=== PATIENT | female | born 1955 | race Caucasian/White ===

== ENCOUNTER 2016-06-28 14:44 | Emergency (ER) | payer BC | END 2016-06-28 19:13 | disposition left against medical advice (07) | LOC: BURERS 14:44 | DX: S76.312A Strain of muscle, fascia and tendon of the posterior muscle group at thigh level, left thigh, initial encounter (principal); E11.9 Type 2 diabetes mellitus without complications; K21.9 Gastro-esophageal reflux disease without esophagitis; E78.5 Hyperlipidemia, unspecified; E78.00 Pure hypercholesterolemia, unspecified; J44.9 Chronic obstructive pulmonary disease, unspecified; Z79.82 Long term (current) use of aspirin; Z79.84 Long term (current) use of oral hypoglycemic drugs; Z79.899 Other long term (current) drug therapy; X58.XXXA Exposure to other specified factors, initial encounter | CPT/HCPCS: 99283 ==

== ENCOUNTER 2018-09-06 20:44 | Emergency (ER) | payer BC, OTHER ==
--- NOTE | 2018-09-06 23:26 | RAD ---
RIGHT KNEE FOUR VIEWS: Date: 09-06-18 FINDINGS: No fracture or large joint effusion seen. There is a small amount of bone spurring and perhaps some m inimal medial joint space narrowing. Otherwise, the exam is unremarkable. IMPRESSION: Minor arthritic changes. POS: HOME
== END 2018-09-06 21:30 | disposition home or self-care (01) ==
LOC: BURERS 20:45
DX: S83.411A Sprain of medial collateral ligament of right knee, initial encounter (principal); E11.9 Type 2 diabetes mellitus without complications; E78.5 Hyperlipidemia, unspecified; M19.90 Unspecified osteoarthritis, unspecified site; J44.9 Chronic obstructive pulmonary disease, unspecified; K21.9 Gastro-esophageal reflux disease without esophagitis; Z79.82 Long term (current) use of aspirin; Z79.899 Other long term (current) drug therapy; Z79.84 Long term (current) use of oral hypoglycemic drugs; X50.1XXA Overexertion from prolonged static or awkward postures, initial encounter

== ENCOUNTER 2020-05-12 11:09 | Inpatient (IN) | payer OTHER ==
[2020-05-12 12:46] LABS: Band 4 % (5-11); Hemoglobin 15.7 g/dL (12.0-16.0); Lymphocytes 42 % (21-51); MDiff Complete? YES; Mean Corpuscular Hemoglobin 28.5 pg (27.0-31.0); Mean Corpuscular Volume 91.9 fL (78.0-98.0); Mean Platelet Volume 14.7 fL (7.4-10.4); Monocytes 3 % (0-10); Neutrophil 41 % (42-75); Platelet Count 125 thou/uL (130-400); RBC Distribution Width 13.5 % (11.5-14.5); Reactive Lymphocytes 10 % (0-10); Red Blood Cell (RBC) Count 5.49 mill/uL (4.20-5.40); White Blood Cell (WBC) Count 3.7 thou/uL (4.8-10.8)
[2020-05-12 12:47] LABS: ALT (SGPT) 43 U/L (8-55); AST (SGOT) 34 U/L (5-34); Albumin 3.7 g/dL (3.4-4.8); Alkaline Phosphatase 94 U/L (40-110); Anion Gap 15 mmol/L (10-20); BUN (Urea Nitrogen) 16 mg/dL (9.8-20.1); Bilirubin, Total 0.4 mg/dL (0.2-1.2); Calc. Creatinine Clearance 0 mL/min (70-130); Calcium 8.8 mg/dL (7.8-10.44); Carbon Dioxide 26 mmol/L (23-31); Chloride 100 mmol/L (98-107); Globulin 3.2 g/dL (2.4-3.5); Glucose 181 mg/dL (80-115); Potassium 4.2 mmol/L (3.5-5.1); Protein, Total 6.9 g/dL (6.0-8.3); Sodium 137 mmol/L (136-145)
--- NOTE | 2020-05-12 13:37 | RAD ---
PORTABLE CHEST: 05/12/20 An AP portable film at 1809 is compared with a 05/14/16 study. Scoliosis is noted as usual. The heart size is normal. There is no congestion of the vessels or pleur al effusions. There are a few linear infiltrates in the left perihilar region. There may be a small ground glass pa tch just above the right lung hilum. While these findings are not definite, the possibility of early infection, including COVID, should be considered. IMPRESSION: A few streaky findings in the lungs as noted above. See discussion. POS: HOME
[2020-05-12] MEDS ORDERED: Dexamethasone 4 mg/ml Vial ONE (15:33)
[2020-05-12] MEDS ORDERED: Azithromycin 500 MG VIAL ONE (15:34)
[2020-05-12] MEDS ORDERED: Enoxaparin Sodium 40 MG/0.4 ML SYRINGE ONE (15:34)
[2020-05-12] MEDS ORDERED: cefTRIAXone\\ROCEPHIN 1 GM VIAL ONE (15:34)
--- NOTE | 2020-05-12 16:49 | CT ---
CT OF THE CHEST WITHOUT CONTRAST: 05/12/[address] of the chest was done without contrast in this patient with a few small infiltrate suggeste d on her recent chest film and dyspnea. Today's exam shows multiple patchy confluent and ground glass infiltrates in all lobes. The upper lob es are somewhat more affected at the moment, but there are findings in the lower lobes as well, more right lower lobe than left. The patchy and ground glass nature and diffuse coverage would be more typ ical of an infection such as COVID than a conventional bacterial pneumonia. Since no IV contrast was used, I cannot comment on any potential for clots. No mediastinal mass was seen. There are no effusio ns. An incidental finding is a small nonobstructing calculus in the upper pole of the left kidney. IMPRESSION: Multiple patchy infiltrates, all lobes, as described. The findings are somewhat more typical for a CO VID-like pneumonia than a conventional bacterial pneumonia. Findings discussed with Dr. Parrish at 1510 on 05/12/20. POS: HOME
[2020-05-12 17:50] LABS: SARS-CoV-2 NAA Rapid Test DETECTED (NotDetected)
[2020-05-12] MEDS ORDERED: Albuterol 200 PUFF (6.7GM INHALER) INH PRN ×2 (17:57→18:44)
[2020-05-12] MEDS ORDERED: Morphine 4 MG/ML VIAL SLOW IVP PRN (17:57)
[2020-05-12] MEDS ORDERED: Ondansetron ODT 4 MG TAB PO PRN (17:58)
[2020-05-12] MEDS ORDERED: Ondansetron PF 4 MG/2 ML Vial IVP PRN (17:58)
[2020-05-12 18:09] VITALS: BMI 45.4
[2020-05-12] MEDS ORDERED: Non-Formulary Item 1 EACH (Budesonide-Formoterol [Symbicort 80-4.5] 80 MG/4.5 MG Aer) INH PRN (18:44)
[2020-05-12] MEDS ORDERED: Dextrose 5% in Water 1,000 ML IV PRN (18:46)
[2020-05-12] MEDS ORDERED: Dextrose 50% Abboject 50 ML SYRINGE SLOW IVP PRN (18:46)
[2020-05-12] MEDS: Simvastatin 40 MG TAB PO SCH (21:24)
[2020-05-12] MEDS: Enoxaparin Sodium 40 MG/0.4 ML SYRINGE SC SCH (21:24)
[2020-05-12] MEDS: glyBURIDE 5 MG TAB PO SCH (21:25)
[2020-05-12] MEDS: metFORMIN 500 MG TAB PO SCH (21:25)
[2020-05-12] MEDS: HumaLOG 300 UNITS/3 ML VIAL SC PRN (21:57)
[2020-05-13 05:46] LABS: ALT (SGPT) 38 U/L (8-55); AST (SGOT) 31 U/L (5-34); Albumin 3.4 g/dL (3.4-4.8); Alkaline Phosphatase 85 U/L (40-110); Anion Gap 15 mmol/L (10-20); BUN (Urea Nitrogen) 19 mg/dL (9.8-20.1); Bilirubin, Total 0.3 mg/dL (0.2-1.2); Calc. Creatinine Clearance 116 mL/min (70-130); Calcium 8.9 mg/dL (7.8-10.44); Carbon Dioxide 27 mmol/L (23-31); Chloride 100 mmol/L (98-107); Glucose 326 mg/dL (80-115); Potassium 5.2 mmol/L (3.5-5.1); Protein, Total 6.4 g/dL (6.0-8.3); Sodium 137 mmol/L (136-145)
[2020-05-13 06:38] LABS: #Lymphocytes 0.9 thou/uL (1.20-3.40); #Monocytes 0.1 thou/uL (0.11-0.59); %Basophils 0.8 % (0.0-1.0); %Eosinophils 0.1 % (0.0-10.0); %Lymphocytes 29.3 % (21.0-51.0); %Monocytes 4.3 % (0.0-10.0); %Neutrophils 65.5 % (42.0-75.0); Band 2 % (5-11); Hemoglobin 14.4 g/dL (12.0-16.0); Large Platelets SLIGHT; Lymphocytes 29 % (21-51); MDiff Complete? YES; Mean Corpuscular HGB CONC 30.7 g/dL (32.0-36.0); Mean Corpuscular Hemoglobin 28.4 pg (27.0-31.0); Mean Corpuscular Volume 92.6 fL (78.0-98.0); Mean Platelet Volume 13.4 fL (7.4-10.4); Monocytes 2 % (0-10); Neutrophil 67 % (42-75); Platelet Count 121 thou/uL (130-400); RBC Distribution Width 13.3 % (11.5-14.5); Red Blood Cell (RBC) Count 5.06 mill/uL (4.20-5.40); White Blood Cell (WBC) Count 3.1 thou/uL (4.8-10.8)
[2020-05-13] MEDS ORDERED: Azithromycin 500 MG in Sodium Chloride 0.9% 250 ML 250 ML IVPB SCH (07:00)
[2020-05-13] MEDS: Dexamethasone 4 MG TAB PO SCH (08:07)
[2020-05-13] MEDS: Aspirin 81 mg Enteric Coated Tablet PO SCH (08:08)
[2020-05-13] MEDS: HumaLOG 300 UNITS/3 ML VIAL SC PRN ×4 (08:09→20:08)
[2020-05-13] MEDS: metFORMIN 500 MG TAB PO SCH ×2 (08:09→20:06)
[2020-05-13] MEDS ORDERED: Lisinopril 5 MG TAB PO SCH (09:00)
[2020-05-13] MEDS: Enoxaparin Sodium 40 MG/0.4 ML SYRINGE SC SCH (20:05)
[2020-05-13] MEDS: glyBURIDE 5 MG TAB PO SCH (20:05)
[2020-05-13] MEDS: Simvastatin 40 MG TAB PO SCH (20:06)
--- NOTE | 2020-05-14 04:47 | HP ---
CHIEF COMPLAINT: Shortness of breath. HISTORY OF PRESENT ILLNESS: This is a 64-year-old female with underlying history of asthma, who presented to the [facility] Emergency Department yesterday evening with complaints of progressive shortness of breath, cough, and congestion. The patient reports these symptoms to have been worsening over the last 3-4 days prior to her arrival. Workup in the emergency department revealed the patient to be COVID positive with subsequent imaging consistent with COVID pneumonia. The patient's lab work was reassuring overall otherwise. As per the patient's vitals, she was notably hypoxic and was unable to sustain adequate oxygenation on room air; therefore, it was decided to admit the patient and further treat her hypoxic state relative to COVID positive diagnosis. In the emergency department, she did receive Rocephin, azithromycin, and dexamethasone. PAST MEDICAL HISTORY: Includes type 2 diabetes mellitus, hypertension, dyslipidemia, asthma, osteoarthritis, and gastroesophageal reflux disease. SURGICAL HISTORY: She had a prior procedure related to scoliosis. SOCIAL HISTORY: The patient is a nonsmoker with no illicit drug use. She has social EtOH use. ALLERGIES: ARE TO EGG, LATEX, AND NATURAL RUBBER. FAMILY HISTORY: Noncontributory. HOME MEDICATIONS: Include, 1. Symbicort two puffs inhaled b.i.d. 2. Ventolin inhaler 2 puffs q.4 hours p.r.n. 3. Simvastatin 20 mg at bedtime. 4. Lisinopril 2.5 mg daily. 5. Aspirin 81 mg daily. 6. Glyburide 5 mg daily. 7. Metformin 1000 mg b.i.d. REVIEW OF SYSTEMS: GENERAL: The patient reports low-grade fever and fatigue. EAR, NOSE, AND THROAT: Complains of congestion. CARDIOVASCULAR: Denies chest pain or palpitations. RESPIRATORY: Complains of shortness of breath and cough. GASTRO: Denies abdominal pain, nausea, vomiting, diarrhea, or constipation. GENITOURINARY: Denies dysuria. MUSCULOSKELETAL: She has chronic joint pain. DERM: Denies rash. NEURO: Denies headache. LABORATORY DATA: COVID positive. White blood cell count is 3.1, hemoglobin 14.4, hematocrit 46.9, and platelets are 121. Sodium is 137, potassium 5.2, BUN is 19, creatinine 0.81, GFR 72, glucose 267, AST 31, ALT 38, troponin 0.018. BNP is less than 10. IMAGIN05/12/2020, chest x-ray shows a few streaky findings in the lungs. On 05/12/2020, chest CT shows multiple patchy infiltrates to all lobes. The findings are somewhat more typical for a COVID-like pneumonia than a conventional bacterial pneumonia. PHYSICAL EXAMINATION: VITAL SIGNS: Temperature is 97.7, pulse is 58, blood pressure 100/60, respirations are 16, oxygen is 93% on 4 L. GENERAL: The patient is alert and oriented, in no acute distress. She is overweight. HEAD, EYES, EARS, NOSE AND THROAT: Normocephalic and atraumatic. Extraocular muscles are intact bilaterally. Pupils are equal, round, and reactive to light. Sclerae are clear. Moist mucous membranes. NECK: Supple without lymphadenopathy. CARDIOVASCULAR: Regular rate and rhythm. Normal S1, S2. RESPIRATORY: Diminished breath sounds throughout. Nasal cannula is in place. No respiratory distress. ABDOMEN: Soft and nontender to palpation. No rebound or guarding. EXTREMITIES: No clubbing, cyanosis, or edema. SKIN: No rash. NEUROLOGIC: Nonfocal with cranial nerves II through XII grossly intact. ASSESSMENT AND PLAN: 1. COVID pneumonia. The patient is receiving dexamethasone daily and IV azithromycin. She is being provided Lovenox for DVT/PE prophylaxis. 2. Hypoxia. The patient is typically not on supplemental oxygen at home. She is unable to maintain adequate oxygenation on room air and is requiring supplemental oxygen. We will resume this to keep saturations greater than 92% and wean as tolerated. 3. Asthma. The patient will be resumed on her controller medication Symbicort. 4. Hypertension. She is hemodynamically stable. We will resume her usual blood pressure medication. 5. Type 2 diabetes mellitus. Current glucose elevated likely secondary to steroid therapy. We will provide the patient's usual diabetic medications and add a Humalog sliding scale. We will follow a.c. and bedtime glucose checks. 6. Dyslipidemia. Patient's statin will be resumed. 7. Prophylaxis. The patient will be provided a proton pump inhibitor for GI prophylaxis and as stated, Lovenox for DVT/PE prophylaxis. 8. Code status is full. 9. Disposition: We will plan for the patient to return home once her respiratory status is back to her baseline and able to sufficiently wean her back to room air; if unable for the patient to return to room air, then at that point, may consider discharge home with supplemental oxygen. Job ID: [id number]
[2020-05-14] MEDS: Azithromycin 500 MG in Sodium Chloride 0.9% 250 ML 250 ML IVPB SCH (05:23)
[2020-05-14] MEDS: metFORMIN 500 MG TAB PO SCH ×2 (10:13→20:43)
[2020-05-14] MEDS: Dexamethasone 4 MG TAB PO SCH (10:14)
[2020-05-14] MEDS: Aspirin 81 mg Enteric Coated Tablet PO SCH (10:14)
[2020-05-14] MEDS: HumaLOG 300 UNITS/3 ML VIAL SC PRN ×3 (10:19→21:11)
[2020-05-14] MEDS: Enoxaparin Sodium 40 MG/0.4 ML SYRINGE SC SCH (20:42)
[2020-05-14] MEDS: Simvastatin 40 MG TAB PO SCH (20:42)
[2020-05-14] MEDS: glyBURIDE 5 MG TAB PO SCH (20:43)
[2020-05-15] MEDS: Azithromycin 500 MG in Sodium Chloride 0.9% 250 ML 250 ML IVPB SCH (05:52)
[2020-05-15] MEDS: Dexamethasone 4 MG TAB PO SCH (07:36)
[2020-05-15] MEDS: metFORMIN 500 MG TAB PO SCH ×2 (07:37→20:30)
[2020-05-15] MEDS: Aspirin 81 mg Enteric Coated Tablet PO SCH (07:37)
[2020-05-15] MEDS: HumaLOG 300 UNITS/3 ML VIAL SC PRN ×4 (07:37→22:21)
[2020-05-15] MEDS: Simvastatin 40 MG TAB PO SCH (20:30)
[2020-05-15] MEDS: glyBURIDE 5 MG TAB PO SCH (20:30)
[2020-05-15] MEDS: Enoxaparin Sodium 40 MG/0.4 ML SYRINGE SC SCH (20:30)
[2020-05-15] MEDS: Mometasone/Formoterol 60 PUFF AER INH SCH (20:31)
[2020-05-16] MEDS: Azithromycin 500 MG in Sodium Chloride 0.9% 250 ML 250 ML IVPB SCH (05:27)
[2020-05-16] MEDS: Aspirin 81 mg Enteric Coated Tablet PO SCH (08:03)
[2020-05-16] MEDS: Dexamethasone 4 MG TAB PO SCH (08:04)
[2020-05-16] MEDS: metFORMIN 500 MG TAB PO SCH ×2 (08:04→20:43)
[2020-05-16] MEDS: Mometasone/Formoterol 60 PUFF AER INH SCH ×2 (08:21→21:36)
[2020-05-16] MEDS: HumaLOG 300 UNITS/3 ML VIAL SC PRN ×3 (13:25→21:35)
[2020-05-16] MEDS: Enoxaparin Sodium 40 MG/0.4 ML SYRINGE SC SCH (20:43)
[2020-05-16] MEDS: Simvastatin 40 MG TAB PO SCH (20:43)
[2020-05-16] MEDS: glyBURIDE 5 MG TAB PO SCH (20:43)
[2020-05-16] MEDS: Milk Of Magnesia 30 ML UDCUP PO PRN (21:35)
[2020-05-17] MEDS: Azithromycin 500 MG in Sodium Chloride 0.9% 250 ML 250 ML IVPB SCH (05:33)
[2020-05-17 05:43] LABS: Platelet Count 157 thou/uL (130-400)
[2020-05-17 06:14] LABS: Calc. Creatinine Clearance 142 mL/min (70-130)
[2020-05-17] MEDS: Dexamethasone 4 MG TAB PO SCH (09:50)
[2020-05-17] MEDS: metFORMIN 500 MG TAB PO SCH ×2 (09:51→21:37)
[2020-05-17] MEDS: Aspirin 81 mg Enteric Coated Tablet PO SCH (09:51)
[2020-05-17] MEDS: Mometasone/Formoterol 60 PUFF AER INH SCH ×2 (09:51→22:04)
[2020-05-17] MEDS: HumaLOG 300 UNITS/3 ML VIAL SC PRN ×3 (13:31→21:49)
[2020-05-17] MEDS: glyBURIDE 5 MG TAB PO SCH (21:37)
[2020-05-17] MEDS: Simvastatin 40 MG TAB PO SCH (21:37)
[2020-05-17] MEDS: Enoxaparin Sodium 40 MG/0.4 ML SYRINGE SC SCH (21:38)
[2020-05-18] MEDS: Azithromycin 500 MG in Sodium Chloride 0.9% 250 ML 250 ML IVPB SCH (05:35)
[2020-05-18] MEDS: Milk Of Magnesia 30 ML UDCUP PO PRN (05:35)
[2020-05-18 06:41] VITALS: BP 146/78; TEMP 98.4
--- NOTE | 2020-05-18 08:19 | DIS ---
DATE OF ADMISSION: 05/14/2020 DATE OF DISCHARGE: 05/18/2020 ADMISSION DIAGNOSES: COVID pneumonia, hypoxia. SECONDARY DIAGNOSES: Asthma, hypertension, type 2 diabetes mellitus, and dyslipidemia. PROCEDURES: 05/12/2020, chest x-ray showed a few streaky findings in the lungs as noted. 05/12/2020, CT scan of chest showed multiple patchy infiltrates to all lobes. The findings are somewhat more typical for a COVID-like pneumonia than a conventional bacterial pneumonia. HOSPITAL COURSE: This 64-year-old female with underlying history of asthma, who is not typically oxygen-dependent, presented to the [facility] Emergency Department with several-day history of progressive shortness of breath, cough, and congestion. Workup in the emergency department revealed the patient to be COVID positive with imaging consistent with COVID pneumonia. Her lab work was reassuring. The patient was unable to maintain satisfactory oxygenation status on room air and thus was admitted for further care. She was treated with IV azithromycin and oral dexamethasone along with her usual medications of Symbicort and rescue inhaler p.r.n. She remained afebrile throughout her stay, and labs were within normal limits otherwise. She was slow to be able to wean off supplemental oxygen, and there was difficulty obtaining home oxygen, which did prolong her stay. Eventually, she was able to wean back to room air, which is her baseline status. At this time, she is feeling well and at her baseline respiratory status and is amenable to discharge back to her home setting. DISPOSITION: The patient will discharge home and follow up with her primary care provider, Mirian Herman, at [facility] in [place]. 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 DISCHARGE MEDICATIONS: One new medicine will be prednisone 20 mg daily for five additional days. She will resume her home medications which include, 1. Symbicort two puffs inhaled b.i.d. 2. Ventolin inhaler 2 puffs q.4 hours p.r.n. 3. Simvastatin 20 mg at bedtime. 4. Lisinopril 2.5 mg daily. 5. Aspirin 81 mg daily. 6. Glyburide 5 mg daily. 7. Metformin 1000 mg b.i.d. Total time spent in preparation and discharge of this patient is greater than 30 minutes. Job ID: [id number]
[2020-05-18] MEDS: Aspirin 81 mg Enteric Coated Tablet PO SCH (10:11)
[2020-05-18] MEDS: Dexamethasone 4 MG TAB PO SCH (10:11)
[2020-05-18] MEDS: Mometasone/Formoterol 60 PUFF AER INH SCH (10:12)
[2020-05-18] MEDS: metFORMIN 500 MG TAB PO SCH (10:12)
== END 2020-05-18 11:20 | disposition home or self-care (01) | DRG 177 ==
LOC: BURERS 11:09 → BURMED 16:33 → OBSVTOIN 05-14 07:37
PROVIDERS: ADMIT Family Medicine; ATTEND Family Medicine
DX: U07.1 COVID-19 (principal); J12.82 Pneumonia due to coronavirus disease 2019; E11.9 Type 2 diabetes mellitus without complications; K21.9 Gastro-esophageal reflux disease without esophagitis; E78.00 Pure hypercholesterolemia, unspecified; R09.02 Hypoxemia; I10 Essential (primary) hypertension; J45.909 Unspecified asthma, uncomplicated; M19.90 Unspecified osteoarthritis, unspecified site; E66.3 Overweight; E78.5 Hyperlipidemia, unspecified; Z91.012 Allergy to eggs; Z79.899 Other long term (current) drug therapy; Z79.82 Long term (current) use of aspirin; Z79.84 Long term (current) use of oral hypoglycemic drugs; Z79.51 Long term (current) use of inhaled steroids; Z79.891 Long term (current) use of opiate analgesic; Z91.040 Latex allergy status; Z91.048 Other nonmedicinal substance allergy status; Z98.890 Other specified postprocedural states
CPT/HCPCS: 0240U; 36415; 36416; 71045; 71250; 80053; 82565; 83605; 83880; 84484; 85014; 85018; 85025; 85049; 87040; 87804; 93005; 96365; 96366; 96372; 96375; 96376; G0378; J0456; J0696; J1100; J1650; J7050; J8540

== ENCOUNTER 2020-09-05 15:29 | Emergency (ER) | payer OTHER | END 2020-09-05 16:19 | disposition home or self-care (01) | LOC: BURERS 15:29 | DX: S46.211A Strain of muscle, fascia and tendon of other parts of biceps, right arm, initial encounter (principal); Z79.899 Other long term (current) drug therapy; Z79.84 Long term (current) use of oral hypoglycemic drugs; Z79.82 Long term (current) use of aspirin; M19.90 Unspecified osteoarthritis, unspecified site; J45.909 Unspecified asthma, uncomplicated; E11.9 Type 2 diabetes mellitus without complications; K21.9 Gastro-esophageal reflux disease without esophagitis; E78.5 Hyperlipidemia, unspecified; E78.00 Pure hypercholesterolemia, unspecified; Z77.22 Contact with and (suspected) exposure to environmental tobacco smoke (acute) (chronic) | CPT/HCPCS: 99283 ==

== ENCOUNTER 2020-11-01 16:28 | Outpatient (CLI) | payer OTHER | END 2020-11-01 16:29 | disposition home or self-care (01) | LOC: BURRAD 16:28 | PROVIDERS: ATTEND Registered Nurse Community Health | DX: M25.551 Pain in right hip (principal) | CPT/HCPCS: 36415; 85379 ==

== ENCOUNTER 2021-08-17 14:04 | Emergency (ER) | payer BC, OTHER ==
[2021-08-17] MEDS ORDERED: Orphenadrine Citrate 60 MG/2 ML VIAL ONE (14:36)
== END 2021-08-17 15:38 | disposition home or self-care (01) ==
LOC: BURERS 14:04
DX: M54.41 Lumbago with sciatica, right side (principal); M19.90 Unspecified osteoarthritis, unspecified site; J45.909 Unspecified asthma, uncomplicated; E11.9 Type 2 diabetes mellitus without complications; K21.9 Gastro-esophageal reflux disease without esophagitis; E78.5 Hyperlipidemia, unspecified; E78.00 Pure hypercholesterolemia, unspecified; X50.0XXA Overexertion from strenuous movement or load, initial encounter; Y92.69 Other specified industrial and construction area as the place of occurrence of the external cause; Z79.82 Long term (current) use of aspirin; Z79.84 Long term (current) use of oral hypoglycemic drugs; Z79.899 Other long term (current) drug therapy
CPT/HCPCS: 72100; 96372; J2360